=== PATIENT | female | born 1985 | race African-American/Black ===

== ENCOUNTER 2018-09-06 12:05 | Emergency (ER) | payer OTHER ==
[2018-09-06 12:42] VITALS: BP 155/89; PULSE 66; TEMP 98.3; BMI 24.6
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
[2018-09-06] MEDS ORDERED: IBUPROFEN 400 MG TABLET (FP) PO ONE ×2 (13:22→13:30)
== END 2018-09-06 13:51 | disposition home or self-care (01) ==
LOC: JERFT 12:05
DX: S29.012A Strain of muscle and tendon of back wall of thorax, initial encounter (principal); V43.02XA Car driver injured in collision with other type car in nontraffic accident, initial encounter; Y92.410 Unspecified street and highway as the place of occurrence of the external cause; M54.6 Pain in thoracic spine; J45.909 Unspecified asthma, uncomplicated
CPT/HCPCS: 84703; 99281-25